=== PATIENT | female | born 1940 | race Caucasian/White ===

== ENCOUNTER 2016-05-26 15:13 | Outpatient (CLI) | payer MEDICARE | END 2016-05-26 15:14 | disposition home or self-care (01) | DX: R05 Cough (principal) ==

== ENCOUNTER 2016-07-23 14:30 | Outpatient (CLI) | payer MEDICARE | END 2016-07-23 14:31 | disposition home or self-care (01) | DX: R07.89 Other chest pain (principal) ==

== ENCOUNTER 2016-10-16 10:58 | Outpatient (CLI) | payer MEDICARE | END 2016-10-16 10:59 | disposition home or self-care (01) | LOC: DI 10:58 | PROVIDERS: ATTEND Nurse Practitioner Family | DX: Z53.9 Procedure and treatment not carried out, unspecified reason (principal) ==

== ENCOUNTER 2016-12-20 11:36 | Outpatient (CLI) | payer MEDICARE ==
[2016-12-20 18:42] LABS: BASOPHILS % (AUTO) 0.7 %; EOSINOPHILS # (AUTO) 0.2 10^3/uL (0.0-0.7); EOSINOPHILS % (AUTO) 2.2 %; HGB - HEMOGLOBIN 12.9 g/dL (12.0-16.0); LYMPHOCYTES # (AUTO) 2.9 10^3/uL (1.5-3.5); LYMPHOCYTES % (AUTO) 39.2 %; MEAN CORPUSCULAR HGB CONC 33.1 g/dL (32.0-36.0); MEAN CORPUSCULAR VOLUME 93.6 fL (81.0-99.0); MEAN PLATELET VOLUME 9.5 fL (7.9-10.8); MONOCYTES # (AUTO) 0.5 10^3/uL (0.0-1.0); MONOCYTES % (AUTO) 6.4 %; NEUTROPHILS # (AUTO) 3.8 10^3/uL (1.5-6.6); NEUTROPHILS % (AUTO) 51.5 %; NUCLEATED RED BLOOD CELLS AUTO 0.1 /100WBC; RED BLOOD COUNT 4.16 10^6/uL (4.20-5.40); RED CELL DISTRIBUTION WIDTH 14.1 % (12.0-15.0); UNCORRECTED WHITE BLOOD COUNT 7.3 x10^3/uL; WHITE BLOOD COUNT 7.3 x10^3/uL (4.8-10.8)
[2016-12-20 19:08] LABS: BUN - BLOOD UREA NITROGEN 14 mg/dL (6-20); CALCIUM 9.2 mg/dL (8.5-10.3); CARBON DIOXIDE - CO2 24 mmol/L (21-32); CHLORIDE 108 mmol/L (101-111); CREATININE 0.7 mg/dL (0.4-1.0); GFR - MDRD 82 (>89); GLUCOSE 98 mg/dL (70-100); POTASSIUM 3.7 mmol/L (3.5-5.0); SODIUM 141 mmol/L (135-145)
== END 2016-12-20 11:37 | disposition home or self-care (01) ==
LOC: LAB.S 11:36
PROVIDERS: ATTEND Nurse Practitioner Family
DX: R53.83 Other fatigue (principal); I10 Essential (primary) hypertension; C55 Malignant neoplasm of uterus, part unspecified
CPT/HCPCS: 36415; 80048; 84443; 85025

== ENCOUNTER 2017-02-05 17:45 | Outpatient (CLI) | payer MEDICARE | END 2017-02-05 17:46 | disposition critical access hospital (66) | LOC: EMS 17:45 | PROVIDERS: ATTEND Surgery | DX: R07.9 Chest pain, unspecified (principal) | CPT/HCPCS: A0425; A0427 ==

== ENCOUNTER 2017-02-05 18:14 | Observation (INO) | payer MEDICARE ==
[2017-02-05] MEDS ORDERED: NITROGLYCERIN 2% PASTE TOP STA (18:29)
--- NOTE | 2017-02-05 18:32 | ED Physician Documentation ---
PD HPI CHEST PAIN - Stated complaint Stated Complaint: CP - History obtained from History obtained from: Patient, EMS - History of Present Illness Timing - onset: Other (76-year-old woman without known history of coronary disease, but did does have history of hypertension hypercholesterolemia has had 4 episodes of chest pain today. The first was around 10 AM and the most recent started around 5 PM. All started at rest and all are described as a substernal chest pressure which was nonradiating except with the last episode mildly through to the back. She has felt generally weak with it and was a little short of breath with the most recent episode. She denies any calf pain or pedal edema.) - Treatment prior to arrival Treatment prior to arrival: She received aspirin prior to arrival and 3 rounds of nitroglycerin sublingually which did help with the pain. Review of Systems Ten Systems: 10 systems reviewed and negative Constitutional: reports: Reviewed and negative Nose: reports: Rhinorrhea / runny nose, Congestion Throat: denies: Sore throat Respiratory: denies: Cough GI: denies: Abdominal Pain PD PAST MEDICAL HISTORY - Past Medical History Past Medical History: Yes Cardiovascular: Hypertension, High cholesterol Endocrine/Autoimmune: Other (Fibromyalgia) - Present Medications Home Medications: Ambulatory Orders Medication Instructions Recorded Confirmed Citalopram [CeleXA] 10 mg PO DAILY 02/05/17 02/05/17 Lisinopril 10 mg PO DAILY 02/05/17 02/05/17 diphenhydrAMINE [Benadryl] 25 mg PO PRN PRN 02/05/17 02/05/17 - Allergies Allergies/Adverse Reactions: Allergies Allergy/AdvReac Type Severity Reaction Status Date / Time adhesive Allergy Hives Verified 02/05/17 18:33 fluoxetine HCl * Allergy Unknown Verified 02/05/17 18:33 [From Prozac] Penicillins Allergy Hives Verified 02/05/17 18:33 quinine Allergy Unknown Verified 02/05/17 18:33 Sulfa (Sulfonamide Allergy Unknown Verified 02/05/17 18:33 Antibiotics) - Social History Does the pt smoke?: No Does the pt drink ETOH?: No Does the pt have substance abuse?: No - Family History Family history: reports: Non contributory PD ED PE NORMAL - Vitals Vital signs reviewed: Yes - General General: Alert and oriented X 3, No acute distress - HEENT HEENT: PERRL, EOMI - Neck Neck: Supple, no meningeal sign, No bony TTP - Cardiac Cardiac: RRR, No murmur - Respiratory Respiratory: No respiratory distress, Clear bilaterally - Abdomen Abdomen: Normal bowel sounds, Soft, Non tender - Back Back: No CVA TTP, No spinal TTP - Derm Derm: Normal color, Warm and dry - Extremities Extremities: No edema, No calf tenderness / cord - Neuro Neuro: Alert and oriented X 3, Normal speech - Psych Psych: Normal mood, Normal affect Results - Vitals Vitals: Vital Signs - 24 hr 02/05/17 02/05/17 02/05/17 18:21 18:45 19:00 Temperature 36.8 C Heart Rate 69 66 63 Respiratory 20 20 16 Rate Blood Pressure 152/72 H 160/75 H 162/76 H O2 Saturation 95 96 96 02/05/17 19:17 Temperature Heart Rate 56 L Respiratory 18 Rate Blood Pressure 155/82 H O2 Saturation 96 Oxygen O2 Source Room air - EKG (time done) 1835 Rate: Rate (enter#) (72) Rhythm: NSR (With PAC) Squire: Normal Intervals: Normal [place] Ischemia: Non specific changes (Early transition of the R waves, she has LVH and inferior Q waves, no prior EKGs available for comparison.) Computer interpretation: Agree with computer - Labs Labs: Laboratory Tests 02/05/17 02/05/17 02/05/17 18:45 18:45 18:45 WBC 7.6 RBC 4.08 L Hgb 12.5 Hct 37.3 MCV 91.4 MCH 30.7 MCHC 33.6 RDW 14.0 Plt Count 200 MPV 9.4 Neut # 4.8 Lymph # 2.1 [place] # 0.6 Eos # 0.1 Baso # 0.1 Absolute Nucleated RBC 0.01 Nucleated RBCs 0.1 PT 12.9 H INR 1.1 Sodium 142 Potassium 3.7 Chloride 107 Carbon Dioxide 25 Anion Gap 10.0 BUN 13 Creatinine 0.8 Estimated GFR (MDRD) 70 L Glucose 96 Calcium 9.2 Total Bilirubin 0.8 AST 15 ALT 11 Alkaline Phosphatase 56 Total Creatine Kinase 42 CK-MB (CK-2) Troponin I B-Natriuretic Peptide Total Protein 7.4 Albumin 3.5 Globulin 3.9 Albumin/Globulin Ratio 0.9 L Lipase 27 02/05/17 02/05/17 18:45 18:45 WBC RBC Hgb Hct MCV MCH MCHC RDW Plt Count MPV Neut # Lymph # [place] # Eos # Baso # Absolute Nucleated RBC Nucleated RBCs PT INR Sodium Potassium Chloride Carbon Dioxide Anion Gap BUN Creatinine Estimated GFR (MDRD) Glucose Calcium Total Bilirubin AST ALT Alkaline Phosphatase Total Creatine Kinase CK-MB (CK-2) 1.0 Troponin I < 0.04 B-Natriuretic Peptide 44 Total Protein Albumin Globulin Albumin/Globulin Ratio Lipase - Rads (name of study) 1v chest Radiology: EMP read contemporaneously (Mild cardiomegaly without acute abnormality) PD MEDICAL DECISION MAKING - ED course ED course: 76-year-old woman with episodic chest pain today, nonexertional but somewhat otherwise typical. Initial workup in the emergency department is without evidence of ischemia, spoke with Dr. Julien for continued observation at 7:42 PM. Departure - Departure Disposition: ED Place in Observation Clinical Impression: Chest pain Qualifiers: Chest pain type: unspecified Qualified Code(s): R07.9 - Chest pain, unspecified Condition: Stable
[2017-02-05] MEDS ORDERED: NITROGLYCERIN 2% PASTE TOP ONE (18:57)
[2017-02-05 19:03] LABS: BASOPHILS # (AUTO) 0.1 10^3/uL (0.0-0.1); BASOPHILS % (AUTO) 0.7 %; EOSINOPHILS # (AUTO) 0.1 10^3/uL (0.0-0.7); HCT - HEMATOCRIT 37.3 % (37.0-47.0); HGB - HEMOGLOBIN 12.5 g/dL (12.0-16.0); LYMPHOCYTES # (AUTO) 2.1 10^3/uL (1.5-3.5); LYMPHOCYTES % (AUTO) 28.1 %; MEAN CORPUSCULAR HEMOGLOBIN 30.7 pg (27.0-31.0); MEAN CORPUSCULAR HGB CONC 33.6 g/dL (32.0-36.0); MEAN CORPUSCULAR VOLUME 91.4 fL (81.0-99.0); MEAN PLATELET VOLUME 9.4 fL (7.9-10.8); MONOCYTES # (AUTO) 0.6 10^3/uL (0.0-1.0); MONOCYTES % (AUTO) 7.4 %; NEUTROPHILS # (AUTO) 4.8 10^3/uL (1.5-6.6); NEUTROPHILS % (AUTO) 62.8 %; NUCLEATED RED BLOOD CELLS AUTO 0.1 /100WBC; RED BLOOD COUNT 4.08 10^6/uL (4.20-5.40); UNCORRECTED WHITE BLOOD COUNT 7.6 x10^3/uL; WHITE BLOOD COUNT 7.6 x10^3/uL (4.8-10.8)
[2017-02-05 19:17] LABS: INR 1.1 (0.8-1.2); PT - PROTHROMBIN TIME 12.9 secs (9.9-12.6)
--- NOTE | 2017-02-05 19:17 | XRAY Preliminary Report ---
Exam: XR Chest 1 View IMPRESSION: Mild cardiomegaly without CHF or acute pulmonary abnormality. [facility] SITE ID: [id number]
--- NOTE | 2017-02-05 19:19 | XRAY Report ---
EXAM: CHEST RADIOGRAPHY EXAM DATE: 02/05/2017 06:56 PM. CLINICAL HISTORY: Chest pain. COMPARISON: 03/22/2012. TECHNIQUE: 1 view. FINDINGS: Lungs/Pleura: Stable elevation of the right hemidiaphragm. No focal opacities evident. No pleural eff usion. No pneumothorax. Mediastinum: Stable mild cardiomegaly. Other: No bony abnormalities identified. IMPRESSION: Mild cardiomegaly without CHF or acute pulmonary abnormality. [facility] Referring Provider Line: [phone] SITE ID: [id number]
[2017-02-05] MEDS ORDERED: SODIUM CHLORIDE FLUSH 0.9% 10 ML SYRINGE IVP ONE (19:20)
[2017-02-05 19:21] LABS: ALBUMIN/GLOBULIN RATIO 0.9 (1.0-2.2); BILIRUBIN,TOTAL 0.8 mg/dL (0.2-1.0); CALCIUM 9.2 mg/dL (8.5-10.3); CREATININE 0.8 mg/dL (0.4-1.0); POTASSIUM 3.7 mmol/L (3.5-5.0); TOTAL PROTEIN 7.4 g/dL (6.7-8.2); TROPONIN I < 0.04 ng/mL (<0.49)
[2017-02-05] MEDS ORDERED: MORPHINE 2 MG/ML SYRINGE IVP PRN (20:08)
[2017-02-05] MEDS ORDERED: SODIUM CHLORIDE FLUSH 0.9% 10 ML SYRINGE IVP PRN (20:08)
[2017-02-05] MEDS ORDERED: ZOLPIDEM 5 MG TABLET PO PRN (20:08)
[2017-02-05] MEDS ORDERED: NITROGLYCERIN SL 0.4 MG TABLET SL PRN (20:08)
[2017-02-05] MEDS ORDERED: PROCHLORPERAZINE 10 MG/2 ML VIAL IVP PRN (20:08)
[2017-02-05] MEDS ORDERED: ONDANSETRON 4 MG/2 ML VIAL IVP PRN (20:08)
[2017-02-05] MEDS ORDERED: HYDROcod/ACETAM 10 MG/325 MG TABLET PO PRN (20:08)
[2017-02-05] MEDS ORDERED: HYDROcod/ACETAM 5/325 MG TABLET PO PRN (20:08)
--- NOTE | 2017-02-05 20:13 | HISTORY & PHYSICAL EXAMINATION ---
Chief Complaint - Chief Complaint Chief Complaint: Chest pain History of Present Illness - Admitted From Admitted From:: Emergency Department - History Obtained From Records Reviewed: Yes History obtained from: Patient Exam Limitations: None - History of Present Illness HPI Comment/Other: Patient is a 76-year-old female with a past medical history significant for obesity, hypertension, hyperlipidemia, breast cancer status post treatment, fibromyalgia and anxiety who presented to the emergency department with a chief complaint of chest pain. The patient states that she has been having off-and- on chest pain throughout the day. She states that initially started about 8 AM she states the chest pain is located in the substernal area and she does have some radiation into the back. She states that the first couple of episodes lasted for short period of time and resolved. However she states that at 1700 tonight she had another episode of chest pain. She states that this 1 lasted longer and would not resolve. She states that she became concerned that time and called her son who did not seed cone picker so she called 911 and came into the emergency department. The patient states that she did feel short of breath with this last episode and she states that the pain was still located in the substernal area it was a dull pain as though something was sitting on her chest. She states that it radiated to her back. She denied any nausea, diaphoresis, palpitations or coughing associated with the pain. She does state that she felt cold especially in her hands and feet. She states that she felt tingling in her fingers when she had the pain. She states that she was sitting watching TV when the pain started. The patient was brought into the emergency department by EMS in route the patient received 4 baby aspirin and 3 doses of nitroglycerin with which the patient states that the pain improved but did not completely resolve. The patient denies any headaches, blurred vision, runny nose, sore throat, nasal congestion, fevers, chills, abdominal pain, nausea, vomiting, diarrhea, constipation, urinary urgency, urinary frequency, dysuria, she does admit to pain all over from her fibromyalgia, she also states that she has had swelling in her left knee, she denies any recent unintentional weight loss or changes in her appetite. She also denies any focal neurologic deficits. On presentation to the emergency department the patient was afebrile and mildly hypertensive but otherwise was not in any respiratory distress. The patient's initial lab work was all within normal limits her troponin was less than 0.04. The patient's EKG showed some nonspecific changes. The patient did have LVH on the EKG and had some flattened T waves in the anterior leads. The patient stated that she has had previous stress test according to the records she had a nuclear medicine Lexiscan in 2014 and at that time it was negative. The patient was placed in observation for serial troponins and echocardiogram to rule out ACS. History - Past Medical History Cardiovascular: reports: Hypertension, High cholesterol, Other (Obesity) Respiratory: reports: None Neuro: reports: None Endocrine/Autoimmune: reports: None, Other (Fibromyalgia) GI: reports: None AUTO TESTER: reports: Uterine cancer, Breast cancer (Left breast) HEENT: reports: None Psych: reports: Depression, Anxiety Musculoskeletal: reports: Osteoarthritis, Fibromyalgia Derm: reports: None MRSA Hx?: No - Past Surgical History Ortho: reports: Other /AUTO TESTER: reports: Hysterectomy, Mastectomy - Family & Social History Family History: Father: (Dad of renal failure), Sister: CAD, Brother: CAD Living arrangement: At home Living Situation: With family (Lives with son) Social History Notes: The patient states that she is originally from [facility]. She moved to [facility] in 2011 to be close to her brother who was sick at the time and in 2013. The patient is her 7 years ago. She has 4 children 3 boys and one girl. She currently lives with her son in [place], [place]. The patient has never smoked, she does not drink alcohol and she denies any illicit drug use. - Substance History Use: Uses substance without health or social issues: NONE Abuse: Recurrent use of substance despite neg consequences: NONE Dependence: Experiences withdrawal or developed tolerances: NONE - POLST Patient has POLST: No POLST Status: Full Code Meds/Allgy - Home Medications Home Medications: Ambulatory Orders Medication Instructions Recorded Confirmed Citalopram [CeleXA] 10 mg PO DAILY 02/05/17 02/05/17 Lisinopril 10 mg PO DAILY 02/05/17 02/05/17 diphenhydrAMINE [Benadryl] 25 mg PO PRN PRN 02/05/17 02/05/17 - Allergies Allergies/Adverse Reactions: Allergies Allergy/AdvReac Type Severity Reaction Status Date / Time adhesive Allergy Hives Verified 02/05/17 18:33 fluoxetine HCl * Allergy Unknown Verified 02/05/17 18:33 [From Prozac] Penicillins Allergy Hives Verified 02/05/17 18:33 quinine Allergy Unknown Verified 02/05/17 18:33 Sulfa (Sulfonamide Allergy Unknown Verified 02/05/17 18:33 Antibiotics) Review of Systems - Other Findings Other Findings: A comprehensive review of systems was performed the pertinent positives and negatives are stated above in the HPI and the remainder of the review of systems is negative. Exam - Vital Signs Reviewed Vital Signs: Yes Vital Signs: Vital Signs x48h Temp Pulse Resp BP Pulse Ox 02/05/17 19:17 56 L 18 155/82 H 96 02/05/17 19:00 63 16 162/76 H 96 02/05/17 18:45 66 20 160/75 H 96 02/05/17 18:21 36.8 C 69 20 152/72 H 95 - Physical Exam General Appearance: positive: No acute distress, Alert, Anxious (Patient feels anxious), Other (Obese) Eyes Bilateral: positive: Normal inspection, PERRL, EOMI, No lid inflammation, Conjunctivae nml, No scleral icterus ENT: positive: ENT inspection nml, Pharynx nml, No signs of dehydration. negative: Purulent nasal drainage, Pharyngeal erythema, Oral lesions Neck: positive: Nml inspection, Thyroid nml, No JVD, Trachea midline. negative : Thyromegaly, Lymphadenopathy (R), Lymphadenopathy (L), Carotid bruit, Tracheal deviation Respiratory: positive: Chest non-tender, No respiratory distress, Breath sounds nml. negative: Wheezes, Rales, Rhonchi Cardiovascular: positive: Regular rate & rhythm, No murmur, No gallop Peripheral Pulses: positive: 2+ Abdomen: positive: Non-tender, No organomegaly, Nml bowel sounds, No distention. negative: Guarding, Rebound, Splenomegaly Back: positive: Nml inspection. negative: CVA tenderness (R), CVA tenderness (L ) Skin: positive: Color nml, No rash, Warm. negative: Cyanosis, Pallor Extremities: positive: Non-tender, Full ROM, Nml appearance, No pedal edema, Other (Left knee swelling) Neurologic/Psychiatric: positive: Oriented x3, CN's nml (2-12), Motor nml, Sensation nml, Depressed mood/affect (Patient is depressed and anxious.) Conclusion/Plan - Problem List (1) Chest pain Conclusion/Plan: The patient presented with chest pain at rest in the substernal area radiating to her back. The patient has history of hypertension, obesity and hyperlipidemia and is 76 years old which puts her at significant risk for acute coronary syndrome. The patient had improvement of chest pain with nitroglycerin and aspirin. Patient has typical and atypical features of chest pain. Given risk factors it was felt best to place patient in observation for a ACS rule out. Plan: Serial troponins x3 Telemetry monitoring Nitroglycerin when necessary for chest pain Aspirin Lipitor Lipid Profile Echo Patient will need stress test as an outpatient. Qualifiers: Chest pain type: unspecified Qualified Code(s): R07.9 - Chest pain, unspecified (2) Hypertension Conclusion/Plan: The patient has history of hypertension and is on lisinopril at home. Patient's blood pressure is poorly controlled on presentation to the emergency department. Plan: We will continue patient's home dose of lisinopril. We will continue to monitor her blood pressure while she is hospitalized. Qualifiers: Hypertension type: essential hypertension Qualified Code(s): I10 - Essential (primary) hypertension (3) Depression Conclusion/Plan: Patient was tearful in the emergency department as she was anxious and depressed when talking about her brother, sister and who have in recent years. Patient will be continued on her home dose of citalopram. Qualifiers: Depression Type: major depressive disorder (4) Hyperlipidemia Conclusion/Plan: Patient states that she has a history of high cholesterol. She states that in the past she has been placed on statin but did not tolerate it. Plan: We will place her on Lipitor while she is hospitalized Patient will get a lipid profile in the morning. - Lab Results Lab results reviewed: Yes Fish Bones: 02/05/17 18:45 02/05/17 18:45 Other Lab Results: Laboratory Results WBC 7.6 x10^3/uL (4.8-10.8) 02/05/17 18:45 RBC 4.08 10^6/uL (4.20-5.40) L 02/05/17 18:45 Hgb 12.5 g/dL (12.0-16.0) 02/05/17 18:45 Hct 37.3 % (37.0-47.0) 02/05/17 18:45 MCV 91.4 fL (81.0-99.0) 02/05/17 18:45 MCH 30.7 pg (27.0-31.0) 02/05/17 18:45 MCHC 33.6 g/dL (32.0-36.0) 02/05/17 18:45 RDW 14.0 % (12.0-15.0) 02/05/17 18:45 Plt Count 200 10^3/uL (130-450) 02/05/17 18:45 MPV 9.4 fL (7.9-10.8) 02/05/17 18:45 Neut # 4.8 10^3/uL (1.5-6.6) 02/05/17 18:45 Lymph # 2.1 10^3/uL (1.5-3.5) 02/05/17 18:45 [place] # 0.6 10^3/uL (0.0-1.0) 02/05/17 18:45 Eos # 0.1 10^3/uL (0.0-0.7) 02/05/17 18:45 Baso # 0.1 10^3/uL (0.0-0.1) 02/05/17 18:45 Absolute Nucleated RBC 0.01 x10^3/uL 02/05/17 18:45 Nucleated RBCs 0.1 /100WBC 02/05/17 18:45 PT 12.9 secs (9.9-12.6) H 02/05/17 18:45 INR 1.1 (0.8-1.2) 02/05/17 18:45 Sodium 142 mmol/L (135-145) 02/05/17 18:45 Potassium 3.7 mmol/L (3.5-5.0) 02/05/17 18:45 Chloride 107 mmol/L (101-111) 02/05/17 18:45 Carbon Dioxide 25 mmol/L (21-32) 02/05/17 18:45 Anion Gap 10.0 (6-13) 02/05/17 18:45 BUN 13 mg/dL (6-20) 02/05/17 18:45 Creatinine 0.8 mg/dL (0.4-1.0) 02/05/17 18:45 Estimated GFR (MDRD) 70 (>89) L 02/05/17 18:45 Glucose 96 mg/dL (70-100) 02/05/17 18:45 Calcium 9.2 mg/dL (8.5-10.3) 02/05/17 18:45 Total Bilirubin 0.8 mg/dL (0.2-1.0) 02/05/17 18:45 AST 15 IU/L (10-42) 02/05/17 18:45 ALT 11 IU/L (10-60) 02/05/17 18:45 Alkaline Phosphatase 56 IU/L (42-121) 02/05/17 18:45 Total Creatine Kinase 42 IU/L (22-269) 02/05/17 18:45 CK-MB (CK-2) 1.0 ng/mL (0.6-6.3) 02/05/17 18:45 Troponin I < 0.04 ng/mL (<0.49) 02/05/17 18:45 B-Natriuretic Peptide 44 pg/mL (5-100) 02/05/17 18:45 Total Protein 7.4 g/dL (6.7-8.2) 02/05/17 18:45 Albumin 3.5 g/dL (3.2-5.5) 02/05/17 18:45 Globulin 3.9 g/dL (2.1-4.2) 02/05/17 18:45 Albumin/Globulin Ratio 0.9 (1.0-2.2) L 02/05/17 18:45 Lipase 27 U/L (22-51) 02/05/17 18:45 - Diagnostic Imaging Results Diagnostic Imaging Results: positive: Final report reviewed Diagnostic Imaging Results Comments: Chest x-ray: Impression: Mild cardiomegaly without CHF or acute pulmonary abnormality. - EKG Results EKG Interpreted Independently: Yes EKG Findings: Nonspecific T-wave flattening in the anterior leads. Left ventricular hypertrophy. Issues/Core Measures - Anticipated LOS Anticipated Stay Length: Less than 2 midnights - DVT/VTE - Prophylaxis VTE/DVT Prophylaxis med ordered at admit?: Yes
[2017-02-05] MEDS ORDERED: ATORVASTATIN 40 MG TABLET PO SCH (21:00)
[2017-02-05] MEDS: SODIUM CHLORIDE FLUSH 0.9% 10 ML SYRINGE IVP SCH (23:42)
[2017-02-05] MEDS: ACETAMINOPHEN 325 MG TABLET PO PRN (23:42)
[2017-02-06] MEDS: SODIUM CHLORIDE FLUSH 0.9% 10 ML SYRINGE IVP SCH (05:11)
[2017-02-06 07:34] LABS: ALBUMIN/GLOBULIN RATIO 0.9 (1.0-2.2); BILIRUBIN,TOTAL 0.5 mg/dL (0.2-1.0); BUN - BLOOD UREA NITROGEN 13 mg/dL (6-20); CALCIUM 9.2 mg/dL (8.5-10.3); CARBON DIOXIDE - CO2 25 mmol/L (21-32); CHLORIDE 107 mmol/L (101-111); CHOL/HDL RATIO 5.3 (<4.4); CHOLESTEROL 201 mg/dL; CREATININE 0.8 mg/dL (0.4-1.0); GFR - MDRD 70 (>89); GLUCOSE 97 mg/dL (70-100); HDL CHOLESTEROL 38 mg/dL; LDL/HDL RATIO 3.8 (<4.4); POTASSIUM 3.7 mmol/L (3.5-5.0); SODIUM 142 mmol/L (135-145); TOTAL PROTEIN 6.9 g/dL (6.7-8.2); TRIGLYCERIDES 101 mg/dL; VLDL CHOLESTEROL 20 mg/dL
--- NOTE | 2017-02-06 07:34 | Discharge Plan ---
Discharge Plan Disposition: Home, Self Care Condition: Good Prescriptions: Saccharomyces Boulardii [Florastor] 250 mg PO BID #60 capsule [place]-3 Acid Ethyl Esters [Lovaza] 1 gm PO BID #60 capsule Diet: Cardiac Activity Restrictions: No Restrictions Shower Restrictions: No Driving Restrictions: No Weight Bearing: Full Weight Instruction Topics: Heart Attack Warning Signs, Heart Failure Warning Signs Additional Instructions or Follow Up instructions: CONTINUE TO TAKE ALL HOME MEDICATIONS PRESCRIBED. YOU WILL NEED TO SEE YOUR PRIMARY CARE PROVIDER WITHIN THE NEXT WEEK FOR REEVALUATION OF YOUR SYMPTOMS PLEASE CONTINUE ON A LOW FAT HEART HEALTHY DIET AND GET PLENTY OF EXERCISE DAILY. WALKING IS A GOOD FORM OF EXERCISE AND HELPS IMPROVE YOUR OVERALL MOOD WELL DRINK PLENTY OF WATER DURING THE DAY TO STAY HYDRATED. YOU NEED TO AVOID SODA AND LIMIT CAFFEINE RETURN TO THE ER IF SYMPTOMS WORSEN OR YOU HAVE SHORTNESS OF BREATH OR CHEST PAIN THAT WILL NOT GO AWAY No Smoking: If you smoke, Please STOP! Call for help. Follow-up with: Joie Castillo ARNP [Primary Care Provider] -
[2017-02-06] MEDS ORDERED: POLYETHYLENE GLYCOL 3350 17 GM PACKET PO SCH (09:00)
[2017-02-06] MEDS ORDERED: CITALOPRAM 10 MG TABLET PO SCH (09:00)
[2017-02-06] MEDS ORDERED: LISINOPRIL 20 MG TABLET PO SCH (09:00)
[2017-02-06] MEDS ORDERED: ENOXAPARIN 40 MG/0.4 ML SYRINGE SUBQ SCH (09:00)
[2017-02-06] MEDS ORDERED: ASPIRIN EC 81 MG TABLET PO SCH (09:00)
[2017-02-06] MEDS ORDERED: FAMOTIDINE 20 MG TABLET PO SCH (09:00)
--- NOTE | 2017-02-06 09:13 | DISCHARGE SUMMARY ---
"Discharge Summary Admit Date: 02/05/17 Discharge Date: 02/06/17 Discharging Provider: MICHAEL BEDOYA Code Status: Attempt Resuscitation Condition at Discharge: Good Discharge Disposition: 01 Home, Self Care Discharge Facility Name: HOME - DIAGNOSES Admission Diagnoses: 1. ACUTE CHEST PAIN WITH HIGH RISK FOR CARDIAC ETIOLOGY 2. CHRONIC MAJOR DEPRESSIVE DISORDER, SINGLE EPISODE 3. HYPERLIPIDEMIA, 4. MORBID OBESITY, BMI >40 5. CHRONIC FIBROMYALGIA 6. CHRONIC ANXIETY DISORDER Discharge Diagnoses with Status of Each Condition: 1. ACUTE CHEST PAIN WITH HIGH RISK FOR CARDIAC ETIOLOGY 2. CHRONIC MAJOR DEPRESSIVE DISORDER, SINGLE EPISODE 3. HYPERLIPIDEMIA, mixed with elevated LDL 4. MORBID OBESITY, BMI >40 5. CHRONIC FIBROMYALGIA 6. CHRONIC ANXIETY DISORDER - HPI History of Present Illness: Patient is a 76-year-old female with a past medical history significant for obesity, hypertension, hyperlipidemia, breast cancer status post treatment, fibromyalgia and anxiety who presented to the emergency department with a chief complaint of chest pain. The patient states that she has been having off-and- on chest pain throughout the day. She states that initially started about 8 AM she states the chest pain is located in the substernal area and she does have some radiation into the back. She states that the first couple of episodes lasted for short period of time and resolved. However she states that at 1700 tonight she had another episode of chest pain. She states that this 1 lasted longer and would not resolve. She states that she became concerned that time and called her son who did not fiber picker so she called 911 and came into the emergency department. The patient states that she did feel short of breath with this last episode and she states that the pain was still located in the substernal area it was a dull pain as though something was sitting on her chest. She states that it radiated to her back. She denied any nausea, diaphoresis, palpitations or coughing associated with the pain. She does state that she felt cold especially in her hands and feet. She states that she felt tingling in her fingers when she had the pain. She states that she was sitting watching TV when the pain started. The patient was brought into the emergency department by EMS in route the patient received 4 baby aspirin and 3 doses of nitroglycerin with which the patient states that the pain improved but did not completely resolve. The patient denies any headaches, blurred vision, runny nose, sore throat, nasal congestion, fevers, chills, abdominal pain, nausea, vomiting, diarrhea, constipation, urinary urgency, urinary frequency, dysuria, she does admit to pain all over from her fibromyalgia, she also states that she has had swelling in her left knee, she denies any recent unintentional weight loss or changes in her appetite. She also denies any focal neurologic deficits. On presentation to the emergency department the patient was afebrile and mildly hypertensive but otherwise was not in any respiratory distress. The patient's initial lab work was all within normal limits her troponin was less than 0.04. The patient's EKG showed some nonspecific changes. The patient did have LVH on the EKG and had some flattened T waves in the anterior leads. The patient stated that she has had previous stress test according to the records she had a nuclear medicine Lexiscan in 2014 and at that time it was negative. The patient was placed in observation for serial troponins and echocardiogram to rule out ACS. - CONSULTS | PROCEDURES Consultations: NONE Procedures: ECHOCARDIOGRAM: EKG: - HOSPITAL COURSE Hospital Course: HOSPITAL COURSE AND TREATMENT (1) Chest pain The patient presented with chest pain at rest in the substernal area radiating to her back. The patient has history of hypertension, obesity and hyperlipidemia and is 76 years old which puts her at significant risk for acute coronary syndrome. The patient had improvement of chest pain with nitroglycerin and aspirin. Patient has typical and atypical features of chest pain. Given risk factors it was felt best to place patient in observation for a ACS rule out. Patient ruled out with Serial troponins x3. she had Telemetry monitoring. she was given Nitroglycerin when necessary for chest pain, Aspirin Lipitor and a Lipid Profile and Echo completed and echo was EF of 70%. Patient will need stress test as an outpatient. (2) Hypertension The patient has history of hypertension and is on lisinopril at home. Patient's blood pressure is poorly controlled on presentation to the emergency department. We continued patient's home dose of lisinopril. We continued to monitor her blood pressure while she is hospitalized. (3) Depression Patient was tearful in the emergency department as she was anxious and depressed when talking about her brother, sister and who have in recent years. Patient was continued on her home dose of citalopram. (4) Hyperlipidemia Patient states that she has a history of high cholesterol. She states that in the past she has been placed on statin but did not tolerate it. Her cholesterol was high with total of 203 and LDL of 146. She was placed on Lipitor while she was hospitalized lipid profile completed DVT prophylaxis with SCD and Lovenox SQ - ALLERGIES Allergies/Adverse Reactions: Allergies Allergy/AdvReac Type Severity Reaction Status Date / Time adhesive Allergy Hives Verified 02/05/17 18:33 fluoxetine HCl * Allergy Unknown Verified 02/05/17 18:33 [From Prozac] Penicillins Allergy Hives Verified 02/05/17 18:33 quinine Allergy Unknown Verified 02/05/17 18:33 Sulfa (Sulfonamide Allergy Unknown Verified 02/05/17 18:33 Antibiotics) - MEDICATIONS Home Medications: Ambulatory Orders Medication Instructions Recorded Confirmed diphenhydrAMINE [Benadryl] 25 mg PO PRN PRN 02/05/17 02/05/17 Citalopram Hydrobromide 20 mg PO DAILY 02/06/17 02/06/17 [Citalopram HBr] Hydrochlorothiazide 25 mg PO DAILY 02/06/17 02/06/17 Lisinopril [Prinivil] 10 mg PO DAILY 02/06/17 02/06/17 [place]-3 Acid Ethyl Esters [Lovaza] 1 gm PO BID #60 capsule 02/06/17 Saccharomyces Boulardii [Florastor] 250 mg PO BID #60 capsule 02/06/17 - PHYSICAL EXAM AT DISCHARGE General Appearance: positive: No acute distress, Alert Eyes Bilateral: positive: Normal inspection, PERRL, EOMI ENT: positive: ENT inspection nml, Pharynx nml, No signs of dehydration Neck: positive: Nml inspection, Thyroid nml, No JVD Respiratory: positive: Chest non-tender, No respiratory distress, Breath sounds nml Cardiovascular: positive: Regular rate & rhythm, No murmur, No gallop Peripheral Pulses: positive: 2+ Abdomen: positive: Non-tender, No organomegaly, Nml bowel sounds, No distention , Other (OBESE PANNUS) Back: positive: Nml inspection. negative: CVA tenderness (R), CVA tenderness (L ) Skin: positive: Color nml, No rash, Warm, Dry Extremities: positive: Non-tender, Full ROM, Nml appearance, No pedal edema Neurologic/Psychiatric: positive: Oriented x3, CN's nml (2-12), Motor nml, Sensation nml, Mood/affect nml - LABS Result Diagrams: 02/05/17 18:45 02/06/17 07:10 Other Lab Results: Abnormal Lab Results 02/05/17 02/05/17 02/05/17 18:45 18:45 18:45 RBC 4.08 10^6/uL L 10^6/uL (4.20-5.40) PT 12.9 secs H secs (9.9-12.6) Estimated GFR (MDRD) 70 L (>89) Albumin/Globulin Ratio 0.9 L (1.0-2.2) Cholesterol LDL Cholesterol, Calc HDL Cholesterol 02/06/17 07:10 RBC PT Estimated GFR (MDRD) 70 L (>89) Albumin/Globulin Ratio 0.9 L (1.0-2.2) Cholesterol 201 mg/dL H mg/dL ( - 199) LDL Cholesterol, Calc 143 mg/dL H mg/dL ( - 129) HDL Cholesterol 38 mg/dL L mg/dL (60 - ) - DIAGNOSTIC IMAGING Diagnostic Imaging Results: Final report reviewed - FOLLOW UP Follow Up: PATIENT WAS INSTRUCTED TO SEE HER PRIMARY CARE PROVIDER AND TO SEE A RESTAURANT AND BAR MANAGER FOR FURTHER EVALUATION AND STRESS TEST SHE WAS INSTRUCTED TO CONTINUE TAKING ALL HOME MEDICATIONS PRESCRIBED SHE WAS TOLD TO RETURN TO THE ER IF SYMPTOMS WORSEN OR RETURN AND TO CALL 911 IF YOU HAVE SHORTNESS OF BREATH AND CHEST PAIN THAT DOES NOT GO AWAY - TIME SPENT Time Spent in Discharge (Minutes): 45 (FOR DISCHARGE PLANNING AND ASSESSMENT)"
[2017-02-06 09:29] VITALS: BP 149/63
[2017-02-06] MEDS ORDERED: OMEGA-3 ACID ETHYL ESTERS 1 GM CAPSULE PO SCH (10:00)
[2017-02-06] MEDS: ACETAMINOPHEN 325 MG TABLET PO PRN (10:10)
== END 2017-02-06 14:10 | disposition home or self-care (01) ==
LOC: EDUNIT# → ED 18:14 → OBS 20:08
PROVIDERS: ADMIT Internal Medicine; ATTEND Nurse Practitioner
DX: R07.2 Precordial pain (principal); I11.9 Hypertensive heart disease without heart failure; E78.2 Mixed hyperlipidemia; F32.9 Major depressive disorder, single episode, unspecified; E66.01 Morbid (severe) obesity due to excess calories; Z68.41 Body mass index [BMI] 40.0-44.9, adult; M79.7 Fibromyalgia; F41.9 Anxiety disorder, unspecified; Z85.3 Personal history of malignant neoplasm of breast; Z63.4 Disappearance and death of family member; Z85.42 Personal history of malignant neoplasm of other parts of uterus; Z90.710 Acquired absence of both cervix and uterus; Z90.10 Acquired absence of unspecified breast and nipple
CPT/HCPCS: 36415; 71010; 80053; 80061; 82550; 82553; 83690; 83735; 83880; 84484; 85025; 85610; 93005; 93306; 99284; 99285; A9270; G0378; 99283

== ENCOUNTER 2017-02-19 10:42 | Outpatient (CLI) | payer MEDICARE ==
--- NOTE | 2017-02-19 15:02 | Ultrasound Report ---
EXAM: ABDOMEN ULTRASOUND LIMITED, RUQ EXAM DATE: 02/19/2017 11:21 AM. CLINICAL HISTORY: ABDOMINAL HERNIA, UMBILICAL HERNIA. COMPARISON: None. TECHNIQUE: Real-time scanning was performed with static images obtained. FINDINGS: Limited exam was performed by the general pediatrician for evaluation of abdominal hernia. Imaging is limited due to size of hernia and patient body habitus. There does appear to be a large midline supraumbilical hernia measuring at least 17.8 cm (CC) by 25.4 cm (ML). No appreciable difference noted with and without probe pressure. IMPRESSION: Large midline supraumbilical hernia suboptimally evaluated with ultrasound due to size and patient baljit dy habitus. [facility] Referring Provider Line: [phone] SITE ID: [id number]
== END 2017-02-19 10:43 | disposition home or self-care (01) ==
LOC: DI 10:42
PROVIDERS: ATTEND Nurse Practitioner Family
DX: K42.9 Umbilical hernia without obstruction or gangrene (principal)
CPT/HCPCS: 76705

== ENCOUNTER 2017-03-26 22:27 | Outpatient (CLI) | payer MEDICARE | END 2017-03-26 22:28 | disposition critical access hospital (66) | LOC: EMS 22:27 | PROVIDERS: ATTEND Surgery | DX: R06.02 Shortness of breath (principal); I46.9 Cardiac arrest, cause unspecified | CPT/HCPCS: A0425; A0433 ==

== ENCOUNTER 2017-03-26 22:55 | Emergency (ER) | payer MEDICARE ==
--- NOTE | 2017-03-26 22:53 | ED Physician Documentation ---
PD HPI CPR - Stated complaint Stated Complaint: CPR - History obtained from History obtained from: EMS - History of Present Illness Preceding symptoms: Back pain, Dyspnea Witnessed: Arrest witnessed Fall: Fell down EMS findings: Unresponsive, Apneic, Pulseless, PEA Treatment ANODIZER: CPR, Defibrillated, Epi (x 6), Atropine (4), Sodium Bicarb (x2). No: Paced (attempted without capture) - Additional information Additional information: patient arrives in ED intubated with ongoing CPR. history is from medic report. Per medics, 911 was called tonight due to complaints of back pain and shortness of breath. by the time medics arrived at scene, patient had lost consciousness and apparently fallen face down, as evidenced by facial swelling and bruising. patient was pulseless and apneic on their arrival, found to be in PEA. on scene as well as on the way to the hospital, [place] have been working on this patient for one hour, with CPR, epinephrine times six doses, atropine times four doses, sodium bicarbonate times two doses, one attempt at defibrillation due to possible fine ventricular fibrillation, and an attempt at pacing without capture. from the time of initial on scene assessment, up to and including arrival to ED, at no time did patient have palpable pulses nor spontaneous respirations. medics report that on their arrival, patient already had fixed and dilated pupils. Patient was intubated in the field. Review of Systems Unable to obtain: Unresponsive, Intubated PD PAST MEDICAL HISTORY - Present Medications Home Medications: Ambulatory Orders Medication Instructions Recorded Confirmed diphenhydrAMINE [Benadryl] 25 mg PO PRN PRN 02/05/17 02/05/17 Citalopram Hydrobromide 20 mg PO DAILY 02/06/17 02/06/17 [Citalopram HBr] Lisinopril [Prinivil] 10 mg PO DAILY 02/06/17 02/06/17 [place]-3 Acid Ethyl Esters [Lovaza] 1 gm PO BID #60 capsule 02/06/17 Saccharomyces Boulardii [Florastor] 250 mg PO BID #60 capsule 02/06/17 hydroCHLOROthiazide 25 mg PO DAILY 02/06/17 02/06/17 [Hydrochlorothiazide] - Allergies Allergies/Adverse Reactions: Allergies Allergy/AdvReac Type Severity Reaction Status Date / Time adhesive Allergy Hives Verified 02/05/17 18:33 fluoxetine HCl * Allergy Unknown Verified 02/05/17 18:33 [From Prozac] Penicillins Allergy Hives Verified 02/05/17 18:33 quinine Allergy Unknown Verified 02/05/17 18:33 Sulfa (Sulfonamide Allergy Unknown Verified 02/05/17 18:33 Antibiotics) PD ED PE NORMAL - Vitals Vital signs reviewed: Yes - Respiratory Respiratory: Other (no spontaneous respirations. there are equal breath sounds when given breaths with AMBU bag through ETT) - Abdomen Abdomen: Soft, Other (obese, large but soft hernia) PD ED PE EXPANDED - General General: Unresponsive, Other (orotracheally intubated) - HEENT HEENT: Other (nasal bridge [id number], small amount of blood. large hematoma right face and right periorbit) - Eyes Eyes: Other (pupils are bilaterally fixed and dilated) - Cardiac Cardiac: Other (pulsseless except during CPR. no cardiac motion on bedside US) - GCS Eye Opening: None Motor: None Verbal: None Total: 3 Results - Vitals Vitals: Vital Signs - 24 hr 03/26/17 03/26/17 22:59 23:01 Temperature 35.9 C L Heart Rate 0 L Respiratory 0 L Rate Blood Pressure 0/0 L O2 Saturation 0 L Oxygen O2 Source Ambu bag PD MEDICAL DECISION MAKING - ED course Complexity details: reviewed old records (reviewed results of recent CT A/P ( performed few days ago; large hernia, no AAA)), considered differential ED course: patient arrives intubated, pulseless and apneic. As noted above, she was given several rounds of multiple medications as well as unsuccessful attempts at pacing and electrocardioversion. Resuscitative efforts have been ongoing for one hour with no return of palpable pulses, spontaneous respirations, or any evidence of return of spontaneous circulation. further resuscitative efforts would be futile, and, after vocalizing this and receiving agreement from the resuscitation team (ED nurses, BLS and ALS present), I pronounced the patient at 23:06. Departure - Departure Disposition: 20 Clinical Impression: Cardiopulmonary arrest, Condition: Stable Discharge Date/Time: 03/27/17 02:11
[2017-03-26 23:09] VITALS: BP 0/0
== END 2017-03-27 02:11 | disposition expired ==
LOC: EDUNIT# → ED 22:55 → SUPCPDRO 22:55 → ED 03-27 02:11
DX: I46.9 Cardiac arrest, cause unspecified (principal)
CPT/HCPCS: 99283; 99285